=== PATIENT | male | born 1950 | race Caucasian/White ===

== ENCOUNTER 2018-06-09 15:04 | Observation (INO) ==
[2018-06-09] MEDS ORDERED: Sod Chloride 0.9% Inj 1,000 ML IV.SIG ONE (15:24)
[2018-06-09 16:05] LABS: Baso % (Auto) 0.6 % (0.0-2.0); Bilirubin,Urine Negative (Negative); Clarity,Urine Clear (Clear); Color,Urine Yellow (Yellw/Straw); Eos # (Auto) 0.1 th/mm3 (0.0-0.4); Eos % (Auto) 3.7 % (0.0-4.0); Glucose,Urine (UA) Negative (Negative); Hematocrit 36.2 % (39.0-51.0); Hemoglobin 12.7 gm/dL (13.0-17.0); Leukocyte Esterase,Urine Negative (Negative); Lymph # (Auto) 1.4 th/mm3 (1.0-4.8); Lymph % (Auto) 35.3 % (9.0-44.0); Mean Corpuscular HGB Conc 35.1 % (32.0-36.0); Mean Corpuscular Hemoglobin 31.5 pg (27.0-34.0); Mean Corpuscular Volume 89.8 fL (80.0-100.0); Mean Platelet Volume 9.5 fL (7.0-11.0); Mono # (Auto) 0.3 th/mm3 (0.0-0.9); Mono % (Auto) 7.4 % (0.0-8.0); Neut # (Auto) 2.2 th/mm3 (1.8-7.7); Nitrite,Urine Negative (Negative); Platelet Count 128 th/mm3 (150-450); Red Blood Count 4.03 mil/mm3 (4.50-5.90); Red Cell Distribution Width 14.6 % (11.6-17.2); Urobilinogen,Urine 0.2 mg/dL (Less than 2)
--- NOTE | 2018-06-09 16:08 | XR ---
EXAM DATE: 06/09/2018 3:59 PM EDT AGE/SEX: 67 years / Male INDICATIONS: Chest pain. CLINICAL DATA: This is the patient's initial encounter. Patient reports that signs and symptoms have been present for 1 day and indicates a pain score of 6/10. MEDICAL/SURGICAL HISTORY: Cardiovascular disease. None. COMPARISON: No prior exams available for comparison. FINDINGS: Suboptimal inspiratory effort with minimal airspace disease at the lung bases. The cardiomediastinal contours are within normal limits given the degree of underexpansion and portable technique. Osseous structures are intact. CONCLUSION: 1. Expiratory portable chest with minimal bibasilar airspace disease, likely atelectasis. Electronically signed by: Carlos Michael MD 06/09/2018 4:07 PM EDT
[2018-06-09 16:13] LABS: Chloride 111 meq/L (98-107); Potassium 3.2 meq/L (3.5-5.1); Sodium 143 meq/L (136-145)
[2018-06-09 16:16] LABS: Calcium 7.9 mg/dL (8.5-10.1)
[2018-06-09 16:17] LABS: Albumin 3.4 g/dL (3.4-5.0); Anion Gap 7 meq/L (5-15); Blood Urea Nitrogen 22 mg/dL (7-18); Carbon Dioxide 24.6 meq/L (21.0-32.0); Glucose,Random 133 mg/dL (74-106)
[2018-06-09 16:18] LABS: Hyaline Casts,Urine 0-3 /lpf (0-3); Squamous Epithelial Cell,Urine 0-5 /hpf (0-5); WBC,Urine 0-5 /hpf (0-5)
[2018-06-09 16:19] LABS: Alanine Aminotransferase 22 U/L (12-78); Mucus,Urine Few /lpf (Occasional)
[2018-06-09 16:20] LABS: Aspartate Aminotransferase 19 U/L (15-37); Glomerular Filtration Rate 32 mL/min (>89)
[2018-06-09 16:21] LABS: Total Protein 6.2 g/dL (6.4-8.2)
[2018-06-09 16:22] LABS: Alkaline Phosphatase 30 U/L (45-117)
[2018-06-09 16:23] LABS: Activated Partial Thrombo Time 21.7 sec (24.3-30.1); INR 1.2 Ratio; Prothrombin Time 12.3 sec (9.8-11.6)
--- NOTE | 2018-06-09 16:59 | CT ---
EXAM DATE: 06/09/2018 4:56 PM EDT AGE/SEX: 67 years / Male INDICATIONS: Syncopal episode. CLINICAL DATA: This is the patient's initial encounter. Patient reports that signs and symptoms have been present for 1 day and indicates a pain score of 0/10. MEDICAL/SURGICAL HISTORY: Lymphoma. HIV. Diabetes. Atrial fibrillation. Tonsillectomy. RADIATION DOSE: 61.24 CTDI (mGy) COMPARISON: No prior exams available for comparison. TECHNIQUE: CT of the head without contrast. Using automated exposure control and adjustment of the mA and/or kV according to patient size, radiation dose was kept as low as reasonably achievable to ob tain optimal diagnostic quality images. DICOM format image data is available electronically for revi ew and comparison. FINDINGS: Cerebrum: The ventricles are normal for age. No evidence of midline shift, mass lesion, hemorrhage o r acute infarction. No extraaxial fluid collections are seen. Posterior Fossa: The cerebellum and brainstem are intact. The 4th ventricle is midline. The cerebe llopontine angle is unremarkable. Extracranial: The visualized portion of the orbits is intact. Skull: The calvaria is intact. No evidence of skull fracture. CONCLUSION: 1. No acute intracranial abnormality. . Electronically signed by: Carlos Michael MD 06/09/2018 4:58 PM EDT
[2018-06-09] MEDS ORDERED: Acetaminophen 325 MG Tablet PO PRN (17:06)
[2018-06-09] MEDS ORDERED: Dextrose 50% in Water 50 ML Vial IV.PUSH PRN (17:12)
[2018-06-09] MEDS ORDERED: Enoxaparin Inj 40 MG/0.4 ML Syringe SQ SCH (18:00)
[2018-06-09] MEDS: Gabapentin 300 MG Capsule PO SCH (18:08)
[2018-06-09] MEDS: Sod Chloride 0.9% Inj 1,000 ML IV.CONT SCH (18:08)
--- NOTE | 2018-06-09 18:35 | P.HP ---
History of Present Illness Primary Care Physician: PROVIDER NON STAFF History of Present Illness: 67-year-old male with history of type 2 diabetes, right bundle branch block, HIV , squamous cell carcinoma of left neck presents to the ER following a syncopal episode. He was outside fishing today and lost a lot of fluid from sweat. Towards the end of the day he hooked the large fish and the exertion made him lightheaded and he subsequently passed out. He had an atraumatic fall. Decided to come to the ER for further evaluation. He reports that he has had 3 of these in the recent years to others in 2009 and 2010. All 3 episodes involved hot sweaty conditions with exertion. Looking back over his life he says that he took karate in his younger years and had a similar episode in his 20s also under hot sweaty conditions with exertion. The only new medication he is taking is a triple antiviral medication for his HIV. He denies any recent nausea vomiting or diarrhea. He denies any chest pain, arrhythmia, diaphoresis. Review of Systems All other systems reviewed negative except as stated in HPI PMFSH - History History Provided By: Patient - Medical History Medical History: Medical History (Last Updated 06/09/18 @ 15:31 by Kalli Aguirre RN) A-fib Diabetes HIV (human immunodeficiency virus infection) Hypertension Lymphoma RBBB - Surgical History Surgical History: Surgical History (Last Updated 06/09/18 @ 15:31 by Kalli Aguirre RN) Hx of cholecystectomy Hx of tonsillectomy - Family History Family History: Family History (Last Updated 06/09/18 @ 18:30 by Tarik House MD) Other Hypertension - Tobacco History Second Hand Smoke Exposure: No Smoking Status: Never smoker - Alcohol History How Often Do You Have a Drink Containing Alcohol: Never - Substance Use History Substance History: No History of Abuse - Travel History Recent Travel in the [place] Within the Last 8 Weeks: No Recent Travel Out of the Country Within the Last 8 Weeks: No - Immunization History Tetanus Immunization: <5 Years Hx Influenza Vaccine This Season: No Medications and Allergies Active Medications: Active Medications Acetaminophen (Tylenol) 650 mg PO Q4H PRN PRN Reason: Temp > 100.4 Al Hydroxide/Mg Hydroxide (Milk Of Magnesia Liq) 30 ml PO Q12H PRN PRN Reason: Mild Constipation Dextrose (D50w Vial) 50 ml IV.PUSH UNSCH PRN PRN Reason: PER HYPOGLYCEMIA PROTOCOL Enoxaparin Sodium (Lovenox Inj) 40 mg SQ Q24H [facility] Last Admin: 06/09/18 18:01 Dose: Not Given Gabapentin (Neurontin) 300 mg PO TID [facility] Last Admin: 06/09/18 18:08 Dose: 300 mg Glucagon (Glucagon Inj) 1 mg OTHER PRN PRN PRN Reason: for Hypoglycemia Protocol Sodium Chloride (Ns Inj) 1,000 mls @ 100 mls/hr IV.CONT .Q10H [facility] Last Admin: 06/09/18 18:08 Dose: 100 mls/hr Insulin Aspart (Novolog Insulin Correctional Sugar Inj) 0 unit SQ ACHS [facility]; Protocol Levothyroxine Sodium (Synthroid) 75 mcg PO DAILY@0600 [facility] Metoprolol Tartrate (Lopressor) 25 mg PO DAILY [facility] Non-Formulary Medication (Hxcoiv-Amqdjihbvdg-Gclw-Nahco3) 137 mcg PO BID [facility] Non-Formulary Medication (Biktarvy) 50 mg PO DAILY [facility] Ondansetron HCl (Zofran Inj) 4 mg IV.PUSH Q6H PRN PRN Reason: NAUSEA OR VOMITING Allergies Allergy/AdvReac Type Severity Reaction Status Date / Time Sulfa (Sulfonamide Allergy Rash Verified 06/09/18 15:28 Antibiotics) Home Medications Medication Instructions Recorded Confirmed Type Biktarvy 50 mg PO DAILY 06/09/18 06/09/18 History Fish Oil PO DAILY 06/09/18 History Nasonex INHALATION HS 06/09/18 History aspirin 81 mg PO DAILY 06/09/18 06/09/18 History atorvastatin 20 mg PO HS 06/09/18 06/09/18 History [id number]-[id number]-[id number] 137 mcg PO BID 06/09/18 06/09/18 History fenofibrate 160 mg PO HS 06/09/18 06/09/18 History furosemide 20 mg PO DAILY 06/09/18 06/09/18 History gabapentin 300 mg PO TID 06/09/18 06/09/18 History glipizide 10 mg PO DAILY 06/09/18 06/09/18 History levothyroxine 75 mcg PO DAILY 06/09/18 06/09/18 History losartan 50 mg PO BID 06/09/18 06/09/18 History metoprolol tartrate 25 mg PO DAILY 06/09/18 06/09/18 History multivitamin PO DAILY 06/09/18 History pioglitazone 30 mg PO DAILY 06/09/18 06/09/18 History vitamin E 1,000 mg PO DAILY 06/09/18 06/09/18 History Exam Vital signs: Vital Signs 06/09/18 15:05 06/09/18 15:12 06/09/18 15:45 Temperature 98.8 F 98.8 F Pulse Rate 80 80 78 Respiratory Rate 16 16 16 Blood Pressure 118/60 118/60 115/62 Pulse Oximetry 95 95 06/09/18 16:11 06/09/18 16:45 06/09/18 17:00 Temperature Pulse Rate 64 84 88 Respiratory Rate 16 14 14 Blood Pressure 101/79 120/64 110/65 Pulse Oximetry 97 99 99 06/09/18 18:11 Temperature Pulse Rate 78 Respiratory Rate 16 Blood Pressure 111/75 Pulse Oximetry 99 Intake & Output 06/08/18 06/09/18 06/09/18 18:59 06:59 18:59 Intake Total 1000 / 1000 Balance 1000 / 1000 Weight 92.5 kg Intake: IV 1000 / 1000 NS Inj 1,000 ML @ Wide Open IV. 1000 / 1000 SIG BOLUS ONE Rx#:[id number] Narrative: GENERAL: AAOx3, no acute distress, adequate nutrition SKIN: Warm and dry, no rashes. Old surgical flap over her left cheek and missing musculature of left neck (SCC resection) HEAD: Atraumatic. Normocephalic. EYES: Pupils equal, round, reactive to light. No scleral icterus. No injection or drainage. ENT: No nasal bleeding or discharge. Moist mucous membranes. Nonerythematous oropharynx. NECK: Trachea midline. No JVD. Thyroid size within normal limits. CARDIOVASCULAR: Regular rate and rhythm. No murmur, no gallops, no rubs. RESPIRATORY: Clear and equal to auscultation bilaterally. No crackles, no wheezes. No accessory muscle use. GASTROINTESTINAL: Abdomen soft, non-tender, nondistended, normal active bowel sounds. Hepatic and splenic margins not palpable. MUSCULOSKELETAL: Extremities without clubbing or cyanosis. No obvious deformities. No edema. NEUROLOGICAL: Awake and alert. No obvious cranial nerve deficits. Motor grossly within normal limits. No focal deficits. Five out of 5 muscle strength in the arms and legs. Normal speech. PSYCHIATRIC: Appropriate mood and affect; insight and judgment normal. Results - Labs CBC & Chem 7: 06/09/18 16:00 06/09/18 16:00 Labs: Laboratory Results - last 24 hr 06/09/18 06/09/18 06/09/18 16:00 16:00 16:00 CBC w Diff Auto diff final WBC 4.0 RBC 4.03 L Hgb 12.7 L Hct 36.2 L MCV 89.8 MCH 31.5 MCHC 35.1 RDW 14.6 Plt Count 128 L MPV 9.5 Neut % (Auto) 53.0 Lymph % (Auto) 35.3 [place] % (Auto) 7.4 Eos % (Auto) 3.7 Baso % (Auto) 0.6 Neut # (Auto) 2.2 Lymph # (Auto) 1.4 [place] # (Auto) 0.3 Eos # (Auto) 0.1 Baso # (Auto) 0.0 WBC Differential . Differential Comment . PT 12.3 H INR 1.2 APTT 21.7 L Sodium 143 Potassium 3.2 L Chloride 111 H Carbon Dioxide 24.6 Anion Gap 7 BUN 22 H Creatinine 2.10 H Estimated GFR 32 L Random Glucose 133 H Calcium 7.9 L Total Bilirubin 0.8 AST 19 ALT 22 Alkaline Phosphatase 30 L Troponin I Less than 0.02 L Total Protein 6.2 L Albumin 3.4 Ur Collection Type Urine Color Urine Clarity Urine pH Ur Specific [place] Urine Protein Urine Glucose (UA) Urine Ketones Urine Occult Blood Urine Nitrate Urine Bilirubin Urine Urobilinogen Ur Leukocyte Esterase Urine WBC Ur Squamous Epith Cells Hyaline Casts Coarse Granular Casts Urine Mucus Micro UA Comment Urine Culture Comments Serum Alcohol Less than 3 06/09/18 16:00 CBC w Diff WBC RBC Hgb Hct MCV MCH MCHC RDW Plt Count MPV Neut % (Auto) Lymph % (Auto) [place] % (Auto) Eos % (Auto) Baso % (Auto) Neut # (Auto) Lymph # (Auto) [place] # (Auto) Eos # (Auto) Baso # (Auto) WBC Differential Differential Comment PT INR APTT Sodium Potassium Chloride Carbon Dioxide Anion Gap BUN Creatinine Estimated GFR Random Glucose Calcium Total Bilirubin AST ALT Alkaline Phosphatase Troponin I Total Protein Albumin Ur Collection Type Clean catch Urine Color Yellow Urine Clarity Clear Urine pH 6.0 Ur Specific [place] 1.020 Urine Protein Negative Urine Glucose (UA) Negative Urine Ketones Negative Urine Occult Blood Negative Urine Nitrate Negative Urine Bilirubin Negative Urine Urobilinogen 0.2 Ur Leukocyte Esterase Negative Urine WBC 0-5 Ur Squamous Epith Cells 0-5 Hyaline Casts 0-3 Coarse Granular Casts 1-3 H Urine Mucus Few H Micro UA Comment Culture not ind Urine Culture Comments Culture not ind Serum Alcohol - Imaging Impressions Chest X-Ray 06/09/18 15:24 CONCLUSION: 1. Expiratory portable chest with minimal bibasilar airspace disease, likely atelectasis. Head CT 06/09/18 15:24 CONCLUSION: 1. No acute intracranial abnormality. . Caprini VTE Risk Assessment Caprini VTE Risk Assessment: Moderate/High Risk (score >= 2) Caprini Risk Assessment Model: Point Value = 1 Point Value = 2 Point Value = 3 Point Value = 5 Age 41-60 Minor surgery BMI > 25 kg/m2 Swollen legs Varicose veins or History of unexplained or recurrent spontaneous Oral contraceptives or hormone replacement Sepsis (< 1 month) Serious lung disease, including pneumonia (< 1 month) Abnormal pulmonary function Acute myocardial infarction Congestive heart failure (< 1 month) History of inflammatory bowel disease Medical patient at bed rest Age 61-74 Arthroscopic surgery Major open surgery (> 45 min) Laparoscopic surgery (> 45 min) Malignancy Confined to bed (> 72 hours) Immobilizing plaster cast Central venous access Age >= 75 History of VTE Family history of VTE Factor V Leiden Prothrombin [id number] Lupus anticoagulant Anticardiolipin antibodies Elevated serum homocysteine Heparin-induced thrombocytopenia Other congenital or acquired thrombophilia Stroke (< 1 month) Elective arthroplasty Hip, pelvis, or leg fracture Acute spinal cord injury (< 1 month) Prophylaxis Regimen: Total Risk Factor Score Risk Level Prophylaxis Regimen 0-1 Low Early ambulation 2 Moderate Order ONE of the following: *Sequential Compression Device (SCD) *Heparin 5000 units SQ BID 3-4 Higher Order ONE of the following medications: *Heparin 5000 units SQ TID *Enoxaparin/Lovenox 40 mg SQ daily (WT < 150 kg, CrCl > 30 mL/min) *Enoxaparin/Lovenox 30 mg SQ daily (WT < 150 kg, CrCl > 10-29 mL/min) *Enoxaparin/Lovenox 30 mg SQ BID (WT < 150 kg, CrCl > 30 mL/min) AND/OR *Sequential Compression Device (SCD) 5 or more Highest Order ONE of the following medications: *Heparin 5000 units SQ TID (Preferred with Epidurals) *Enoxaparin/Lovenox 40 mg SQ daily (WT < 150 kg, CrCl > 30 mL/min) *Enoxaparin/Lovenox 30 mg SQ daily (WT < 150 kg, CrCl > 10-29 mL/min) *Enoxaparin/Lovenox 30 mg SQ BID (WT < 150 kg, CrCl > 30 mL/min) AND *Sequential Compression Device (SCD) Assessment and Plan - Plan Syncope Patient was outside in the heat, lots of sweats, elevated BUN and creatinine, passed out from exhaustion We will do standard workup with carotid artery ultrasound, orthostatics, telemetry, echocardiogram Rehydrate with IV fluids overnight and follow-up labs in a.m. Type 2 diabetes Accu-Cheks with sliding scale insulin coverage Diabetic diet HIV Continue with home meds triple antiviral therapy h/o SCC with resection on left neck Consider effect on the carotid bulb, no history of radiation DVT Prophylaxis Lovenox
[2018-06-09] MEDS ORDERED: BIKTARVY PO SCH (19:00)
[2018-06-09] MEDS ORDERED: AZELASTINE FLUTICASONE NASAL SCH (21:00)
[2018-06-09] MEDS: Insulin NovoLOG Aspart Correctional Sugar Inj SQ SCH (21:12)
--- NOTE | 2018-06-09 22:15 | MR ---
EXAM DATE: 06/09/2018 9:27 PM EDT AGE/SEX: 67 years / Male INDICATIONS: . Syncopal episode. CLINICAL DATA: This is the patient's initial encounter. Patient reports that signs and symptoms have been present for 1 day and indicates a pain score of 0/10. MEDICAL/SURGICAL HISTORY: Diabetes mellitus type II. HIV. Cholecystectomy. Pt states he was ou t in the heat for too long today. COMPARISON: [facility], CT HEAD W/O CONTRAST, 06/09/2018. . TECHNIQUE: Multiplanar, multisequence examination of the brain was performed without contrast. FINDINGS: Cerebrum: The ventricles are normal for age. No evidence of midline shift, mass lesion, hemorrhage or acute infarction. No extraaxial fluid collections are seen. The pituitary gland and suprasellar cistern are normal in configuration. White Matter: No significant signal abnormalities are seen in the white matter. Posterior Fossa: The cerebellum and brainstem are intact. The 4th ventricle is midline. The cerebel lopontine angle is unremarkable. The cerebellar tonsils are normal in position. Diffusion Imaging: No focal areas of restricted diffusion are seen. No evidence of acute infarction . Extracranial: The visualized portions of the orbits and paranasal sinuses are unremarkable. CONCLUSION: 1. Negative noncontrast MRI of the brain. Electronically signed by: Jase Ram MD 06/09/2018 10:13 PM EDT
[2018-06-10] MEDS: Sod Chloride 0.9% Inj 1,000 ML IV.CONT SCH (03:23)
[2018-06-10] MEDS ORDERED: Levothyroxine 75 MCG Tablet PO SCH (06:00)
[2018-06-10] MEDS: Gabapentin 300 MG Capsule PO SCH ×2 (08:19→12:30)
[2018-06-10] MEDS: Insulin NovoLOG Aspart Correctional Sugar Inj SQ SCH ×2 (08:20→12:20)
[2018-06-10 08:48] LABS: Potassium 3.8 meq/L (3.5-5.1)
[2018-06-10 08:50] LABS: Calcium 8.5 mg/dL (8.5-10.1); Carbon Dioxide 27.6 meq/L (21.0-32.0)
[2018-06-10] MEDS ORDERED: Metoprolol Tartrate 25 MG Tablet PO SCH (09:00)
--- NOTE | 2018-06-10 15:25 | P.DS ---
Date of admission: 06/09/18 17:05 Primary care physician: PROVIDER NON STAFF Brief History from admission: 67-year-old male with history of type 2 diabetes, right bundle branch block, HIV , squamous cell carcinoma of left neck presents to the ER following a syncopal episode. He was outside fishing today and lost a lot of fluid from sweat. Towards the end of the day he hooked the large fish and the exertion made him lightheaded and he subsequently passed out. He had an atraumatic fall. Decided to come to the ER for further evaluation. He reports that he has had 3 of these in the recent years to others in 2009 and 2010. All 3 episodes involved hot sweaty conditions with exertion. Looking back over his life he says that he took karate in his younger years and had a similar episode in his 20s also under hot sweaty conditions with exertion. The only new medication he is taking is a triple antiviral medication for his HIV. He denies any recent nausea vomiting or diarrhea. He denies any chest pain, arrhythmia, diaphoresis. DS: Summary Hospital Course: 59-year-old male who presented with syncopal episode following a long day of fishing and during exertion of catching a large fish. He presented to the ER with signs of dehydration. MRI of the brain revealed no stroke. Orthostatics were within normal limits. Patient received his echocardiogram at approximately 3 PM. Is been hospitalized since 7 PM yesterday but has not yet received his carotid ultrasound. He is unwilling to stay for that test, I do not think it is a high yield test given that this likely is a scenario of dehydration induced syncope. I have instructed him to follow-up with his primary care provider in order to obtain a baseline carotid ultrasound. I will be calling him with results of the echocardiogram if they return prior to 7 PM. He has been instructed to avoid fishing for as long as he has, also instructed to hydrate and avoid extreme heat for prolonged periods. - Time Spent with Patient Total time spent providing and/or coordinating discharge services: Less than 30 minutes - Quality: VTE Deep Vein Thrombosis/Pulmonary Embolism Present on Admission: No Exam Vital signs: Vital Signs 06/09/18 15:45 06/09/18 16:11 06/09/18 16:45 Temperature Pulse Rate 78 64 84 Respiratory Rate 16 16 14 Blood Pressure 115/62 101/79 120/64 Pulse Oximetry 97 99 06/09/18 17:00 06/09/18 18:11 06/09/18 18:30 Temperature 96.9 F L Pulse Rate 88 78 67 Respiratory Rate 14 16 18 Blood Pressure 110/65 111/75 138/67 Pulse Oximetry 99 99 96 06/09/18 20:00 06/10/18 00:00 06/10/18 04:00 Temperature 96.4 F L 97.4 F L 96.9 F L Pulse Rate 71 70 65 Respiratory Rate 20 20 20 Blood Pressure 158/73 H 141/81 H 154/79 H Pulse Oximetry 98 96 97 06/10/18 08:00 06/10/18 11:46 Temperature 97.0 F L 96.9 F L Pulse Rate 73 55 L Respiratory Rate 18 18 Blood Pressure 164/81 H 160/84 H Pulse Oximetry 99 95 Intake & Output 06/09/18 06/10/18 06/10/18 18:59 06:59 18:59 Intake Total 1000 / 1000 480 / 480 1000 / 1000 Balance 1000 / 1000 480 / 480 1000 / 1000 Weight 92.5 kg 92.5 kg Intake: IV 1000 / 1000 1000 / 1000 NS Inj 1,000 ML @ 100 mls/hr IV 1000 / 1000 .CONT .Q10H [facility]IO Rx#:[id number] NS Inj 1,000 ML @ Wide Open IV. 1000 / 1000 SIG BOLUS ONE Rx#:[id number] Oral 480 / 480 Other: # Voids 2 Results Procedures completed during hospitalization: None Labs on day of discharge: Labs from last 24 hours 06/10/18 06/10/18 06/09/18 08:32 08:16 19:44 CBC w Diff WBC RBC Hgb Hct MCV MCH MCHC RDW Plt Count MPV Neut % (Auto) Lymph % (Auto) [place] % (Auto) Eos % (Auto) Baso % (Auto) Neut # (Auto) Lymph # (Auto) [place] # (Auto) Eos # (Auto) Baso # (Auto) WBC Differential Differential Comment PT INR APTT Sodium 142 Potassium 3.8 Chloride 109 H Carbon Dioxide 27.6 Anion Gap 5 BUN 19 H Creatinine 1.70 H Estimated GFR 40 L POC Glucose 122 H 163 H Random Glucose 130 H Calcium 8.5 Total Bilirubin AST ALT Alkaline Phosphatase Troponin I Total Protein Albumin Ur Collection Type Urine Color Urine Clarity Urine pH Ur Specific [place] Urine Protein Urine Glucose (UA) Urine Ketones Urine Occult Blood Urine Nitrate Urine Bilirubin Urine Urobilinogen Ur Leukocyte Esterase Urine WBC Ur Squamous Epith Cells Hyaline Casts Coarse Granular Casts Urine Mucus Micro UA Comment Urine Culture Comments Serum Alcohol 06/09/18 06/09/18 06/09/18 16:00 16:00 16:00 CBC w Diff WBC RBC Hgb Hct MCV MCH MCHC RDW Plt Count MPV Neut % (Auto) Lymph % (Auto) [place] % (Auto) Eos % (Auto) Baso % (Auto) Neut # (Auto) Lymph # (Auto) [place] # (Auto) Eos # (Auto) Baso # (Auto) WBC Differential Differential Comment PT 12.3 H INR 1.2 APTT 21.7 L Sodium 143 Potassium 3.2 L Chloride 111 H Carbon Dioxide 24.6 Anion Gap 7 BUN 22 H Creatinine 2.10 H Estimated GFR 32 L POC Glucose Random Glucose 133 H Calcium 7.9 L Total Bilirubin 0.8 AST 19 ALT 22 Alkaline Phosphatase 30 L Troponin I Less than 0.02 L Total Protein 6.2 L Albumin 3.4 Ur Collection Type Clean catch Urine Color Yellow Urine Clarity Clear Urine pH 6.0 Ur Specific [place] 1.020 Urine Protein Negative Urine Glucose (UA) Negative Urine Ketones Negative Urine Occult Blood Negative Urine Nitrate Negative Urine Bilirubin Negative Urine Urobilinogen 0.2 Ur Leukocyte Esterase Negative Urine WBC 0-5 Ur Squamous Epith Cells 0-5 Hyaline Casts 0-3 Coarse Granular Casts 1-3 H Urine Mucus Few H Micro UA Comment Culture not ind Urine Culture Comments Culture not ind Serum Alcohol Less than 3 06/09/18 16:00 CBC w Diff Auto diff final WBC 4.0 RBC 4.03 L Hgb 12.7 L Hct 36.2 L MCV 89.8 MCH 31.5 MCHC 35.1 RDW 14.6 Plt Count 128 L MPV 9.5 Neut % (Auto) 53.0 Lymph % (Auto) 35.3 [place] % (Auto) 7.4 Eos % (Auto) 3.7 Baso % (Auto) 0.6 Neut # (Auto) 2.2 Lymph # (Auto) 1.4 [place] # (Auto) 0.3 Eos # (Auto) 0.1 Baso # (Auto) 0.0 WBC Differential . Differential Comment . PT INR APTT Sodium Potassium Chloride Carbon Dioxide Anion Gap BUN Creatinine Estimated GFR POC Glucose Random Glucose Calcium Total Bilirubin AST ALT Alkaline Phosphatase Troponin I Total Protein Albumin Ur Collection Type Urine Color Urine Clarity Urine pH Ur Specific [place] Urine Protein Urine Glucose (UA) Urine Ketones Urine Occult Blood Urine Nitrate Urine Bilirubin Urine Urobilinogen Ur Leukocyte Esterase Urine WBC Ur Squamous Epith Cells Hyaline Casts Coarse Granular Casts Urine Mucus Micro UA Comment Urine Culture Comments Serum Alcohol - Impressions ITS Impressions Head MRI 06/09/18 00:00 CONCLUSION: 1. Negative noncontrast MRI of the brain. Chest X-Ray 06/09/18 15:24 CONCLUSION: 1. Expiratory portable chest with minimal bibasilar airspace disease, likely atelectasis. Head CT 06/09/18 15:24 CONCLUSION: 1. No acute intracranial abnormality. . Discharge Plan - Discharge Disposition Patient Disposition: 01 Discharge Home - Discharge Condition Condition: Good - Discharge Order Discharge Orders: Discharge Order (Routine); Ordered 06/10/18 Ordered By: Tarik House - Physicians Team Primary Care Provider: NON STAFF,PROVIDER Attending Provider: Tarik House
--- NOTE | 2018-06-10 16:44 | US ---
EXAM DATE: 06/10/2018 4:40 PM EDT AGE/SEX: 67 years / Male INDICATIONS: Syncope. CLINICAL DATA: This is the patient's initial encounter. Patient reports that signs and symptoms have been present for 1 day and indicates a pain score of 0/10. MEDICAL/SURGICAL HISTORY: . A-fib. Diabetes. HIV. Hypertension. Lymphoma. Cholecystectomy. To nsillectomy. Multiple left cervical lymph node removal. COMPARISON: No prior exams available for comparison. VELOCITY PARAMETERS: ICA/CCA Ratio: Right 1.3 , Left 0.8 ICA: Right 82 cm/sec, Left 64 cm/sec CCA: Right 63 cm/sec, Left 79 cm/sec ECA: Right 69 cm/sec, Left 59 cm/sec Vertebral: Right 43 cm/sec antegrade, Left 60 cm/sec antegrade FINDINGS: Right Carotid: No significant plaque is visualized.The waveforms are within normal limits. Left Carotid: No significant plaque is visualized. The waveforms are within normal limits. Other: None. CONCLUSION: 1. Right Internal Carotid Artery: No significant stenosis or atherosclerotic plaque is visualized. 2. Left Internal Carotid Artery: No significant stenosis or atherosclerotic plaque is visualized. Electronically signed by: Carlos Michael MD 06/10/2018 4:43 PM EDT
--- NOTE | 2018-06-11 11:20 | ECHRPT ---
Indication: HYPERTENSIVE HEART DISEASE CONCLUSIONS Normal left ventricular size. Wall thickness is measured at the upper limits of normal. The left ventricular systolic function is normal with ejection fraction 65-70%. There is mild tricuspid valve regurgitation. The estimated pulmonary arterial pressure is 46.2 mmHg. BP: / HR: Rhythm: Sinus MEASUREMENTS (Male / Female) Normal Values Technical Quality:Fair 2D ECHO LV Diastolic Diameter PLAX 5.2 cm 4.2 - 5.9 / 3.9 - 5.3 cm LV Systolic Diameter PLAX 3.3 cm IVS Diastolic Thickness 1.0 cm 0.6 - 1.0 / 0.6 - 0.9 cm LVPW Diastolic Thickness 1.0 cm 0.6 - 1.0 / 0.6 - 0.9 cm LV Relative Wall Thickness 0.4 RV Internal Dim ED PLAX 2.7 cm LVOT Diameter 2.6 cm Aortic Root Diameter 3.6 cm LA Systolic Diameter LX 3.7 cm 3.0 - 4.0 / 2.7 - 3.8 cm M-MODE AV Cusp Separation MM 2.4 cm DOPPLER AV Peak Velocity 102.0 cm/s AV Peak Gradient 4.2 mmHg AV Mean Gradient 2.0 mmHg AV Velocity Time Integral 20.8 cm LVOT Peak Velocity 57.9 cm/s LVOT Peak Gradient 1.3 mmHg LVOT Velocity Time Integral 13.6 cm AV Area Cont Eq vti 3.5 cm AV Area Cont Eq pk 3.0 cm Mitral E Point Velocity 72.1 cm/s Mitral A Point Velocity 89.3 cm/s Mitral E to A Ratio 0.8 LV E' Lateral Velocity 9.6 cm/s Mitral E to LV E' Lateral Ratio 7.5 LV E' Septal Velocity 5.7 cm/s Mitral E to LV E' Septal Ratio 12.8 TR Peak Velocity 301.0 cm/s TR Peak Gradient 36.2 mmHg Right Atrial Pressure 10.0 mmHg Pulmonary Artery Systolic Pressu 46.2 mmHg Right Ventricular Systolic Press 46.2 mmHg PV Peak Velocity 51.1 cm/s PV Peak Gradient 1.0 mmHg FINDINGS LEFT VENTRICLE Normal left ventricular size. Wall thickness is measured at the upper limits of normal. The left ventricular systolic function is normal with ejection fraction 65-70%. RIGHT VENTRICLE Normal right ventricular size and systolic function. LEFT ATRIUM The left atrial size is normal. RIGHT ATRIUM The right atrial size is normal. ATRIAL SEPTUM No atrial level shunt is demonstrated by color flow Doppler interrogation. AORTA The aortic root and proximal ascending aorta are not well visualized. MITRAL VALVE Structurally normal mitral valve. No mitral valve stenosis or regurgitation. AORTIC VALVE Trileaflet aortic valve. No aortic valve stenosis or regurgitation. TRICUSPID VALVE There is mild tricuspid valve regurgitation. The estimated pulmonary arterial pressure is 46.2 mmHg. PULMONARY VALVE No pulmonary valve regurgitation or stenosis VESSELS The inferior vena cava is normal in size. PERICARDIUM No pericardial effusion. Isidro Jenkins MD, FACC (Electronically Signed) Final Date:11 June 2018 11:19
== END 2018-06-10 17:03 | disposition home or self-care (01) ==
LOC: PH3 15:04 → PHED 15:04 → PHEDA 15:04 → PH3 17:51
PROVIDERS: ADMIT Family Medicine; ATTEND Family Medicine